=== PATIENT | female | born 1940 | race Caucasian/White ===

== ENCOUNTER 2023-12-19 09:27 | Day surgery (SDC) | payer OTHER, BC ==
[2023-12-13 14:26] VITALS: BMI 25.9
[2023-12-19 12:03] VITALS: BP 124/74; PULSE 73; RESP 21; TEMP 97.2
== END 2023-12-19 12:02 | disposition home or self-care (01) ==
LOC: FASU-ENDO 09:27
PROVIDERS: ATTEND Internal Medicine Gastroenterology
PROC: 0DB68ZX Excision of Stomach, Via Natural or Artificial Opening Endoscopic, Diagnostic (ICD-10-PCS; 2023-12-19)
PROC: 0DB98ZX Excision of Duodenum, Via Natural or Artificial Opening Endoscopic, Diagnostic (ICD-10-PCS; principal; 2023-12-19 11:14)
DX: K29.50 Unspecified chronic gastritis without bleeding (principal); K31.819 Angiodysplasia of stomach and duodenum without bleeding; K31.7 Polyp of stomach and duodenum; K31.89 Other diseases of stomach and duodenum; R10.13 Epigastric pain
CPT/HCPCS: 88305-TC; 88342-TC